=== PATIENT | female | born 1990 ===

== ENCOUNTER 2018-07-09 11:46 | Emergency (ER) | payer MEDICAID ==
[2018-07-09 12:06] VITALS: RESP 18; TEMP 98.4; BMI 25.0
--- NOTE | 2018-07-09 12:33 | ED PDOC ---
Arrival/HPI - General Time Seen by Provider: 07/09/18 11:47 Historian: Patient - History of Present Illness Narrative History of Present Illness (Text): 07/09/18 12:33 A 27 year old female with no significant past medical history presents to the emergency department complaining of left sided abdominal pain for the past 6 months. Patient reports pain began after she gave 6 months ago and states she was seen [place] [facility] [place] however her pain still persisted. Patient notes her bowel movements have recently had clear mucus. Patient notes she was seen by her MANAGER [employer] after having given but her vaginal area was not examined. Patient notes she has a schedule pap smear this July. Patient reports she takes tylenol for the pain and reports she took a pill 2 hours ago. Patient denies any fever, chills, shortness of breath, chest pain, diarrhea, nausea, vomiting, urinary symptoms, back pain, neck pain, headache, dizziness, or any other comp laints. PMD: Dr. Villegas Time/Duration: > month (6 months) Symptom Onset: Gradual Symptom Course: Unchanged Activities at Onset: Light Context: Home Past Medical History - Provider Review Nursing Documentation Reviewed: Yes Family/Social History - Physician Review Nursing Documentation Reviewed: Yes Family/Social History: No Known Family HX Allergies/Home Meds Allergies/Adverse Reactions: Allergies No Known Allergies Allergy (Verified 07/09/18 12:36) Review of Systems - Physician Review All systems were reviewed & negative as marked: Yes - Review of Systems Constitutional: absent: Fevers, Other (chills) Respiratory: absent: SOB Cardiovascular: absent: Chest Pain Gastrointestinal: Abdominal Pain. absent: Diarrhea, Nausea, Vomiting Genitourinary Female: Urine Output Changes (bowel movement has clear mucus) Musculoskeletal: absent: Back Pain, Neck Pain Neurological: absent: Headache, Dizziness Physical Exam Vital Signs Reviewed: Yes Vital Signs Temp Pulse Resp BP Pulse Ox 07/09/18 12:05 98.4 F 96 H 18 124/82 99 Temperature: Afebrile Blood Pressure: Normal Pulse: Tachycardic Respiratory Rate: Normal Appearance: Positive for: Well-Appearing, Non-Toxic Pain Distress: Mild Mental Status: Positive for: Alert and Oriented X 3 - Systems Exam Head: Present: Atraumatic, Normocephalic Pupils: Present: PERRL Extroacular Muscles: Present: EOMI Conjunctiva: Present: Normal Respiratory/Chest: Present: Clear to Auscultation, Good Air Exchange. No: Respiratory Distress, Accessory Muscle Use Cardiovascular: Present: Regular Rate and Rhythm, Normal S1, S2. No: Murmurs Abdomen: Present: Tenderness (superpubic and lower left quadrant tenderness). No: Distention Neurological: Present: GCS=15, CN II-XII Intact, Speech Normal Skin: Present: Warm, Dry, Normal Color. No: Rashes Psychiatric: Present: Alert, Oriented x 3, Normal Insight, Normal Concentration Medical Decision Making ED Course and Treatment: 07/09/18 12:33 Impression: 27 year old female presenting to the emergency department complaining of left-sided abdominal pain. Plan: -- CMP -- CBC -- Toradol -- Urinalysis -- Transvaginal ultrasound -- Reassess and disposition Progress Notes: 07/09/18 14:17 Labs reviewed with no acute abnormalities at this time. Pending US results. - Lab Interpretations Lab Results: 07/09/18 13:25 07/09/18 13:25 Lab Results 07/09/18 13:25: Sodium 141, Potassium 4.1, Chloride 105, Carbon Dioxide 26, Anion Gap 14, BUN 18, Creatinine 0.7, Est GFR ( Amer) > 60, Est GFR (Non- Af Amer) > 60, Random Glucose 90, Calcium 9.9, Total Bilirubin 0.5, AST 26, ALT 26, Alkaline Phosphatase 71, Total Protein 8.4 H, Albumin 4.8, Globulin 3.6, Albumin/Globulin Ratio 1.3 07/09/18 13:25: Urine Color Yellow, Urine Appearance Clear, Urine pH 6.0, Ur Specific [place] 1.020, Urine Protein Trace H, Urine Glucose (UA) Negative, Urine Ketones Negative, Urine Blood Large H, Urine Nitrate Negative, Urine Bilirubin Negative, Urine Urobilinogen 0.2, Ur Leukocyte Esterase Trace H, Urine RBC 20 - 25 H, Urine WBC 1 - 3, Ur Epithelial Cells 1 - 3, Urine Bacteria Few 07/09/18 13:25: WBC 8.8, RBC 4.50, Hgb 12.5, Hct 39.3, MCV 87.3, MCH 27.8, MCHC 31.8, RDW 13.3, Plt Count 247, MPV 10.8, Neut % (Auto) 75.8 H, Lymph % (Auto) 20.4 L, Turner % (Auto) 2.6, Eos % (Auto) 1.1 L, Baso % (Auto) 0.1, Lymph # (Auto) 1.8, Turner # (Auto) 0.2, Eos # (Auto) 0.1, Baso # (Auto) 0.01, Absolute Neuts (au to) 6.67 H I have reviewed the lab results: Yes - Scribe Statement The provider has reviewed the documentation as recorded by the Scribmaite Estrada All medical record entries made by the Scribe were at my direction and personally dictated by me. I have reviewed the chart and agree that the record accurately reflects my personal performance of the history, physical exam, medical decision making, and the department course for this patient. I have also personally directed, reviewed, and agree with the discharge instructions and disposition. Disposition/Present on Arrival - Present on Arrival Any Indicators Present on Arrival: No History of DVT/PE: No History of Uncontrolled Diabetes: No Urinary Catheter: No History of Decub. Ulcer: No - Disposition Have Diagnosis and Disposition been Completed?: Yes Diagnosis: Abdominal pain Disposition: HOME/ ROUTINE Disposition Time: 15:10 Patient Plan: Discharge Condition: IMPROVED Discharge Instructions (ExitCare): Acute Abdomen (Belly Pain) Print Language: SPA Additional Instructions: All medical record entries made by the Scribe were at my direction and personally dictated by me. I have reviewed the chart and agree that the record accurately reflects my personal performance of the history, physical exam, medical decision making, and the department course for this patient. I have also personally directed, reviewed, and agree with the discharge instructions and d isposition. 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
[2018-07-09 13:44] LABS: BASO # 0.01 K/mm3 (0.0-2.0); BASO % 0.1 % (0.0-3.0); EOS # 0.1 (0.0-0.7); EOS % 1.1 % (1.5-5.0); HEMOGLOBIN 12.5 g/dL (12.0-16.0); LYMPH # 1.8 (1.2-3.4); LYMPH % 20.4 % (22.0-35.0); MEAN CELL VOLUME 87.3 fl (80.0-105.0); MEAN CORPUSCULAR HEMOGLOBIN 27.8 pg (25.0-35.0); MEAN CORPUSCULAR HGB CONC 31.8 g/dl (31.0-37.0); MEAN PLATELET VOLUME 10.8 fl (7.0-11.0); MONO # 0.2 (0.1-0.6); MONO % 2.6 % (1.0-6.0); RBC 4.5 10^6/uL (3.5-6.1); RED CELL DISTRIBUTION WIDTH 13.3 % (11.5-14.5); URINE BILIRUBIN NEGATIVE (NEGATIVE); URINE BLOOD LARGE (NEGATIVE); URINE GLUCOSE (UA) NEGATIVE (NEGATIVE); URINE LEUKOCYTE ESTERASE TRACE Leu/uL (NEGATIVE); URINE PROTEIN TRACE mg/dL (<30 mg/dL); URINE UROBILINOGEN 0.2 E.U./dL (<1 E.U./dL); WHITE BLOOD COUNT 8.8 10^3/uL (4.5-11.0)
[2018-07-09 13:45] LABS: URINE APPEARANCE CLEAR (CLEAR); URINE COLOR YELLOW (YELLOW)
[2018-07-09 13:54] LABS: ALB/GLOB RATIO 1.3 (1.1-1.8); ALBUMIN 4.8 g/dL (3.0-4.8); ALT/SGPT 26 U/L (7-56); AST/SGOT 26 U/L (14-36); BLOOD UREA NITROGEN 18 mg/dL (7-21); CALCIUM 9.9 mg/dL (8.4-10.5); GFR NON-AFRICAN AMERICAN > 60
[2018-07-09 14:01] LABS: URINE BACTERIA FEW /hpf; URINE RBC 20 - 25 /hpf (0-2)
--- NOTE | 2018-07-09 14:41 | US ---
Date of service: 07/09/2018 HISTORY: pelvic pain LMP irregular bleeding since 05/25/2018. COMPARISON: None available. TECHNIQUE: Transvaginal FINDINGS: UTERUS: Measures 7.0 x 3.9 by 4.6 cm cm. Retroverted. No fibroid or other mass lesion seen. ENDOMETRIUM: Measures 3 mm in diameter. Unremarkable. CERVIX: No cervical abnormality identified. RIGHT OVARY: Measures 3.0 x 3.1 x 2.0 cm. No solid mass. Normal flow. Multiple small follicles present. LEFT OVARY: Measures 3.9 x 2.0 x 3.1 cm. No solid mass. Normal flow. Multiple small follicles present FREE FLUID: No significant free fluid noted. OTHER FINDINGS: None. IMPRESSION: Retroverted uterus without uterine mass. Unremarkable endometrium. Each ovary with the multiple small physiologic appearing follicles.
[2018-07-09 15:31] VITALS: BP 110/63; PULSE 85; O2SAT 100
== END 2018-07-09 15:33 | disposition home or self-care (01) ==
LOC: MERGE 11:46 → ED 11:46
DX: R10.9 Unspecified abdominal pain (principal)
CPT/HCPCS: 76830; 80053; 81001; 81025; 85025; 87086; 96374; 99283; J1885